=== PATIENT | male | born 1975 | race Caucasian/White ===

== ENCOUNTER 2018-08-25 18:09 | Emergency (ER) | payer MEDICAID ==
[~2018-08-25] VITALS: Ht 175.3 cm; Wt 176.4 kg
[2018-08-25 18:11] VITALS: Ht 175.3 cm; Wt 176.4 kg
[2018-08-25 18:48] VITALS: BP 145/73
== END 2018-08-25 18:48 | disposition home or self-care (01) ==
LOC: ED 18:09
DX: H60.91 Unspecified otitis externa, right ear (principal); J06.9 Acute upper respiratory infection, unspecified

== ENCOUNTER 2018-10-03 06:07 | Emergency (ER) | payer MEDICAID ==
[~2018-10-03] VITALS: Ht 175.3 cm; Wt 171.7 kg
[2018-10-03 06:13] VITALS: Ht 175.3 cm; Wt 171.7 kg
[2018-10-03 09:05] LABS: BASOPHIL % 0.1 % (0-2); RED CELL DISTRIBUTION WIDTH 13.8 % (11.5-14.5)
[2018-10-03 09:11] LABS: PLATELET COUNT 109 x10^3mcL (130-400)
[2018-10-03 09:21] LABS: CALCIUM 9.1 mg/dL (8.5-10.1); CARBON DIOXIDE 26.1 mmol/L (21-32); CHLORIDE SERUM 104 mmol/L (98-107); CREATININE SERUM 0.6 mg/dL (0.7-1.3); GFR1 > 60 mL/min; GLUCOSE SERUM 107 mg/dL (74-106); POTASSIUM SERUM 4.1 mmol/L (3.5-5.1); SODIUM SERUM 137 mmol/L (136-145)
[2018-10-03 09:25] LABS: ALBUMIN 3.7 g/dL (3.4-5.0); ALKALINE PHOSPHATASE 121 U/L (46-116); ALT/SGPT 27 U/L (16-63); AST/SGOT 22 U/L (15-37)
[2018-10-03 11:22] VITALS: BP 125/81
== END 2018-10-03 11:22 | disposition short-term general hospital (02) ==
LOC: ED 06:07
PROVIDERS: Emergency Medicine
DX: J05.10 Acute epiglottitis without obstruction (principal)
CPT/HCPCS: J0696; J1100; J1885